=== PATIENT | female | born 1960 | race Caucasian/White ===

== ENCOUNTER 2019-05-22 17:04 | Emergency (ER) | payer BC ==
[2019-05-22] MEDS ORDERED: ONDANSETRON 4 MG/2 ML VIAL ONE (19:30)
[2019-05-22] MEDS ORDERED: NA CHLORIDE 0.9% 1,000 ML ONE (19:30)
[2019-05-22 19:35] LABS: Absolute Lymphocytes (CBC) 0.4 K/uL (0.7-4.9); Basophils % 0.7 % (0-1.3); Hematocrit 42.8 % (36.0-45.0); Lymphocytes % 5.8 % (15.3-44.8); MPV 8.4 fL (7.6-11.3); RBC Red Blood Cell Count 4.86 M/uL (3.86-4.86)
[2019-05-22 19:59] LABS: Albumin 4.1 g/dL (3.4-5.0); Bilirubin Direct 0.1 mg/dL (0-0.2); Bilirubin Total 0.6 mg/dL (0.2-1.0); Potassium 3.4 mmol/L (3.5-5.1); Protein, Total 8.4 g/dL (6.4-8.2)
[2019-05-22 20:01] LABS: Urine White Blood Cell Casts OK
[2019-05-22 20:02] LABS: Blood Morphology Comment NOT SEEN (NOT SEEN); Platelet Estimate ADEQ
--- NOTE | 2019-05-22 20:56 | EDPHYS ---
Physician Documentation [facility] Name: Opal Willingham Age: 59 yrs Sex: Female : 1960 Arrival Date: 05/22/2019 Time: 17:05 Bed 20 Private MD: Huyen Nicholson R ED Physician Jj Weir HPI: 05/22 21:34 This 59 yrs old Female presents to ER via Ambulatory with complaints of Flu tw4 Symptoms. 21:34 The patient presents to the emergency department with nausea, vomiting, 10 times since tw4 the onset of symptoms, described as diarrhea. Onset: The symptoms/episode began/occurred today. Possible causes: unknown, flare up of bowel problem, Crohn's disease. The symptoms are aggravated by nothing. The symptoms are alleviated by nothing. The patient has not experienced similar symptoms in the past. Historical: - Allergies: 17:25 No Known Allergies; ca1 - Home Meds: 17:25 Nexium Oral [Active]; aspirin 81 mg Oral chew 1 tab once daily [Active]; ca1 - PMHx: 17:25 Clotting Disorder; ca1 - PSHx: 17:25 Hysterectomy; ca1 - Immunization history:: Adult Immunizations up to date, Flu vaccine is not up to date. - Coronavirus screen:: The patient has NOT traveled to [place] in the past 14 days. The patient has NOT had contact with known/suspected case of Coronavirus?. - Social history:: Smoking status: Patient denies any tobacco usage or history of. - Ebola Screening: : Patient negative for fever greater than or equal to 101.5 degrees Fahrenheit, and additional compatible Ebola Virus Disease symptoms Patient denies exposure to infectious person Patient denies travel to an Ebola-affected area in the 21 days before illness onset No symptoms or risks identified at this time. ROS: 21:34 Constitutional: Negative for fever, chills, and weight loss, Eyes: Negative for injury, tw4 pain, redness, and discharge, Cardiovascular: Negative for chest pain, palpitations, and edema, Respiratory: Negative for shortness of breath, cough, wheezing, and pleuritic chest pain, Back: Negative for injury and pain, MS/Extremity: Negative for injury and deformity, Skin: Negative for injury, rash, and discoloration, Neuro: Negative for headache, weakness, numbness, tingling, and seizure. 21:34 Abdomen/GI: Positive for abdominal pain, nausea and vomiting, nausea, vomiting, and diarrhea, nausea, vomiting, diarrhea, Negative for constipation, abdominal cramps, abdominal distension, anorexia, dysphagia, black/tarry stool, rectal pain, bowel incontinence. Exam: 21:34 Constitutional: This is a well developed, well nourished patient who is awake, alert, tw4 and in no acute distress. Head/Face: Normocephalic, atraumatic. Chest/axilla: Normal chest wall appearance and motion. Nontender with no deformity. No lesions are appreciated. Cardiovascular: Regular rate and rhythm with a normal S1 and S2. No gallops, murmurs, or rubs. Normal PMI, no JVD. No pulse deficits. Respiratory: Lungs have equal breath sounds bilaterally, clear to auscultation and percussion. No rales, rhonchi or wheezes noted. No increased work of breathing, no retractions or nasal flaring. 21:34 Abdomen/GI: Soft, non-tender, with normal bowel sounds. No distension or tympany. No guarding or rebound. No evidence of tenderness throughout. Back: No spinal tenderness. No costovertebral tenderness. Full range of motion. MS/ Extremity: Pulses equal, no cyanosis. Neurovascular intact. Full, normal range of motion. Neuro: Awake and alert, GCS 15, oriented to person, place, time, and situation. Cranial nerves II-XII grossly intact. Motor strength 5/5 in all extremities. Sensory grossly intact. Cerebellar exam normal. Normal gait. Vital Signs: 17:25 BP 139 / 93; Pulse 96; Resp 17 S; Temp 98.4(O); Pulse Ox 100% on R/A; Weight 77.11 kg ca1 (R); Height 5 ft. 7 in. (170.18 cm) (R); 18:17 BP 158 / 91; Pulse 87; Resp 17; Pulse Ox 100% on R/A; Pain 4/10; rb1 19:44 BP 137 / 90; Pulse 81; Resp 18; Pulse Ox 96% on R/A; wh 21:00 BP 139 / 88; Pulse 79; Resp 18; Pulse Ox 99% on R/A; wh 17:25 Body Mass Index 26.63 (77.11 kg, 170.18 cm) ca1 18:17 Pt. just walked back from the restroom rb1 MDM: 17:45 Patient medically screened. tw4 21:36 Differential diagnosis: Nonspecific abd pain, gastritis. Data reviewed: vital signs, tw4 nurses notes. Data interpreted: Pulse oximetry: Interpretation: normal. Counseling: I had a detailed discussion with the patient and/or guardian regarding: the historical points, exam findings, and any diagnostic results supporting the discharge/admit diagnosis. Special discussion: I discussed with the patient/guardian in detail that at this point there is no indication for admission to the hospital. It is understood, however, that if the symptoms persist or worsen the patient needs to return immediately for re-evaluation. 05/22 17:11 Order name: Flu snw 05/22 17:11 Order name: Strep snw 05/22 18:36 Order name: Basic Metabolic Panel [facility] 05/22 18:36 Order name: CBC with Diff [facility] 05/22 18:36 Order name: Creatinine for Radiology [facility] 05/22 18:36 Order name: Hepatic Function [facility] 05/22 18:36 Order name: Lipase tw 05/22 18:36 Order name: IV Saline Lock; Complete Time: 19:31 [facility] 05/22 18:36 Order name: Labs collected and sent; Complete Time: 19:31 [facility] 05/22 19:41 Order name: Throat Culture [facility] 05/22 20:03 Order name: CBC Smear Scan [facility] Administered Medications: 19:28 Drug: NS 0.9% 1000 ml Route: IV; Rate: 1 bolus; Site: right antecubital; 21:19 Follow up: Response: No adverse reaction; IV Status: Completed infusion 19:30 Drug: Zofran 4 mg Route: IVP; Site: right antecubital; 21:19 Follow up: Response: No adverse reaction; Nausea is decreased 21:10 Drug: Potassium Chloride 20 mEq Route: PO; 21:19 Follow up: Response: No adverse reaction Disposition: 05/22/19 20:55 Discharged to Home. Impression: Influenza due to identified novel influenza A virus, Other viral enteritis. - Condition is Stable. - Discharge Instructions: Influenza, Adult, Viral Gastroenteritis, Adult, [id number]. - Prescriptions for Bentyl 20 mg Oral Tablet - take 1 tablet by ORAL route every 6 hours As needed; 20 tablet. Zofran 4 mg Oral Tablet - take 1 tablet by ORAL route every 12 hours As needed; 6 tablet. Tamiflu 75 mg Oral Capsule - take 1 tablet by ORAL route every 12 hours for 5 days; 10 tablet. - Medication Reconciliation Form, Thank You Letter, Antibiotic Education, Prescription Opioid Use form. - Follow up: Huyen Nicholson MD; When: Upon discharge from the Emergency Department; Reason: If symptoms return, Recheck today's complaints, Continuance of care, Re-evaluation by your physician. - Problem is new. - Symptoms have improved. Signatures: Dispatcher [employer] EDMS Ludy Mclaughlin Terrence, MD MD tw4 Blessing Bowen RN RN ca1 Corrections: (The following items were deleted from the chart) 21:21 20:55 05/22/2019 20:55 Discharged to Home. Impression: Influenza due to identified novel influenza A virus; Other viral enteritis. Condition is Stable. Forms are Medication Reconciliation Form, Thank You Letter, Antibiotic Education, Prescription Opioid Use. Follow up: Huyen Nicholson; When: Upon discharge from the Emergency Department; Reason: If symptoms return, Recheck today's complaints, Continuance of care, Re-evaluation by your physician. Problem is new. Symptoms have improved. tw4
--- NOTE | 2019-05-22 20:56 | ER ---
Nurse's Notes [facility] Name: Opal Willingham Age: 59 yrs Sex: Female : 1960 Arrival Date: 05/22/2019 Time: 17:05 Bed 20 Private MD: Huyen Nicholson R Diagnosis: Influenza due to identified novel influenza A virus;Other viral enteritis Presentation: 05/22 17:21 Presenting complaint: Patient states: Yesterday, sudden onset of cough. This morning ca1 fever at 101F. They swabbed for FLU was negative. Vomiting and diarrhea at 1100, and stopped at 1500. I feel very dehydrated, tingling on my hands and spasms on my legs. Transition of care: patient was not received from another setting of care. Onset of symptoms was May 22, 2019. Risk Assessment: Do you want to hurt yourself or someone else? Patient reports no desire to harm self or others. Initial Sepsis Screen: Does the patient meet any 2 criteria? No. Patient's initial sepsis screen is negative. Does the patient have a suspected source of infection? No. Patient's initial sepsis screen is negative. Care prior to arrival: None. 17:21 Method Of Arrival: Ambulatory ca1 17:21 Acuity: EFREM 3 ca1 Historical: - Allergies: 17:25 No Known Allergies; ca1 - Home Meds: 17:25 Nexium Oral [Active]; aspirin 81 mg Oral chew 1 tab once daily [Active]; ca1 - PMHx: 17:25 Clotting Disorder; ca1 - PSHx: 17:25 Hysterectomy; ca1 - Immunization history:: Adult Immunizations up to date, Flu vaccine is not up to date. - Coronavirus screen:: The patient has NOT traveled to [place] in the past 14 days. The patient has NOT had contact with known/suspected case of Coronavirus?. - Social history:: Smoking status: Patient denies any tobacco usage or history of. - Ebola Screening: : Patient negative for fever greater than or equal to 101.5 degrees Fahrenheit, and additional compatible Ebola Virus Disease symptoms Patient denies exposure to infectious person Patient denies travel to an Ebola-affected area in the 21 days before illness onset No symptoms or risks identified at this time. Screenin:35 Abuse screen: Denies threats or abuse. Nutritional screening: No deficits noted. rb1 Tuberculosis screening: No symptoms or risk factors identified. Fall Risk None identified. Assessment: 17:35 General: Appears uncomfortable, Behavior is calm, cooperative, Reports fever for Max rb1 Temp 101. Pain: Complains of pain in ribs Pain currently is 4 out of 10 on a pain scale. Aggravated by coughing. Neuro: Level of Consciousness is awake, alert, obeys commands, Oriented to person, place, time, situation. Cardiovascular: Capillary refill < 3 seconds is brisk in bilateral fingers. Respiratory: Reports cough that is pain with cough Airway is patent Respiratory effort is even, unlabored, Respiratory pattern is regular, symmetrical. GI: Reports diarrhea, nausea, vomiting. : No signs and/or symptoms were reported regarding the genitourinary system. Derm: Skin is pink, warm \T\ dry. 18:33 Reassessment: Patient appears in no apparent distress at this time. No changes from [facility] previously documented assessment. 19:15 Reassessment: Patient appears in no apparent distress at this time. Patient and/or family updated on plan of care and expected duration. Pain level reassessed. Patient is alert, oriented x 3, equal unlabored respirations, skin warm/dry/pink. 20:30 Reassessment: Patient appears in no apparent distress at this time. No changes from previously documented assessment. Patient and/or family updated on plan of care and expected duration. Pain level reassessed. Patient is alert, oriented x 3, equal unlabored respirations, skin warm/dry/pink. MD at bedside explaining POC. 21:16 Reassessment: Patient appears in no apparent distress at this time. No changes from previously documented assessment. Patient and/or family updated on plan of care and expected duration. Pain level reassessed. Patient is alert, oriented x 3, equal unlabored respirations, skin warm/dry/pink. Patient states feeling better. Patient states symptoms have improved. Vital Signs: 17:25 BP 139 / 93; Pulse 96; Resp 17 S; Temp 98.4(O); Pulse Ox 100% on R/A; Weight 77.11 kg ca1 (R); Height 5 ft. 7 in. (170.18 cm) (R); 18:17 BP 158 / 91; Pulse 87; Resp 17; Pulse Ox 100% on R/A; Pain 4/10; rb1 19:44 BP 137 / 90; Pulse 81; Resp 18; Pulse Ox 96% on R/A; wh 21:00 BP 139 / 88; Pulse 79; Resp 18; Pulse Ox 99% on R/A; wh 17:25 Body Mass Index 26.63 (77.11 kg, 170.18 cm) ca1 18:17 Pt. just walked back from the restroom rb1 ED Course: 17:05 Patient arrived in ED. rg4 17:05 Huyen Nicholson MD is Private Physician. rg4 17:23 Triage completed. ca1 17:25 Arm band placed on right wrist. ca1 17:31 Jj Weir MD is Attending Physician. tw4 17:32 Bouchra Rogers, JODIE is Primary Nurse. rb1 17:35 Patient has correct armband on for positive identification. Bed in low position. Call rb1 light in reach. Side rails up X 1. Pulse ox on. NIBP on. 19:15 Inserted saline lock: 22 gauge in right antecubital area, using aseptic technique. Blood collected. 20:55 Huyen Nicholson MD is Referral Physician. tw4 21:20 No provider procedures requiring assistance completed. Patient did not have IV access during this emergency room visit. Administered Medications: 19:28 Drug: NS 0.9% 1000 ml Route: IV; Rate: 1 bolus; Site: right antecubital; 21:19 Follow up: Response: No adverse reaction; IV Status: Completed infusion 19:30 Drug: Zofran 4 mg Route: IVP; Site: right antecubital; 21:19 Follow up: Response: No adverse reaction; Nausea is decreased 21:10 Drug: Potassium Chloride 20 mEq Route: PO; 21:19 Follow up: Response: No adverse reaction Outcome: 20:55 Discharge ordered by . tw4 21:20 Discharged to home via wheelchair, with family. 21:20 Condition: stable 21:20 Discharge instructions given to patient, family, Instructed on discharge instructions, follow up and referral plans. medication usage, POC Demonstrated understanding of instructions, follow-up care, medications, POC Prescriptions given X 3. 21:21 Patient left the ED. Signatures: Bouchra Rogers, JODIE RN rb1 Carline Carbajal 4 Habalo, Jj Holder MD MD tw4 Blessing Bowen RN RN ca1 Corrections: (The following items were deleted from the chart) 17:26 17:21 Presenting complaint: Patient states: Yesterday, sudden onset of cough. This ca1 morning fever at 101F. They swabbed for a FLU was negative. Vomiting and diarrhea at 1100, and stopped at 1500. I feel very dehydrated, tingling on my hands and spasms on my legs. ca1 18:17 17:35 Respiratory: Airway is patent Respiratory effort is even, unlabored, Respiratory rb1 pattern is regular, symmetrical, rb1
[2019-05-22] MEDS ORDERED: POTASSIUM CL SA 10 MEQ TAB PO ONE (21:11)
[2019-05-22 21:48] VITALS: TEMP 98.4
[2019-05-22 21:55] VITALS: BP 139/88; O2SAT 99
== END 2019-05-22 21:21 | disposition home or self-care (01) ==
LOC: ER 17:04
DX: J10.1 Influenza due to other identified influenza virus with other respiratory manifestations (principal); A08.39 Other viral enteritis; D75.89 Other specified diseases of blood and blood-forming organs; Z79.82 Long term (current) use of aspirin
CPT/HCPCS: 96361; 87070; 85025; 80048; 36415; 80076; 87081; 83690; 87804 ×2; 96374; 99284; J7030; J2405

== ENCOUNTER 2021-10-05 09:36 | Emergency (ER) | payer BC ==
[2021-10-05] MEDS ORDERED: ONDANSETRON 4 MG/2 ML VIAL ONE ×2 (10:44→12:56)
[2021-10-05] MEDS ORDERED: Ringers Lactate 1,000 ML IV ONE (10:44)
[2021-10-05 10:51] LABS: Absolute Lymphocytes (CBC) 0.2 K/uL (0.7-4.9); Hematocrit 39.6 % (36.0-45.0); Lymphocytes % 1.8 % (15.3-44.8); MCV 85.3 fL (80-100); RBC Red Blood Cell Count 4.64 M/uL (3.86-4.86)
[2021-10-05 10:52] LABS: Protime INR 1.12
[2021-10-05 10:57] LABS: Urine Blood Negative (Negative); Urine Glucose Negative (Negative); Urine Protein Negative (Negative); Urine Specific Gravity 1.025 (1.005-1.030); Urine pH 5.5 (5.0-7.0)
--- NOTE | 2021-10-05 11:07 | RAD REPORT ---
EXAM DESCRIPTION: [facility] Single View10/05/2021 10:09 am CLINICAL HISTORY: sob COMPARISON: none FINDINGS: The lungs appear clear of acute infiltrate. The heart is normal size IMPRESSION: No acute abnormalities displayed
[2021-10-05 11:09] LABS: Albumin 3.9 g/dL (3.4-5.0); Bilirubin Direct 0.1 mg/dL (0-0.2); Bilirubin Total 0.6 mg/dL (0.2-1.0); Magnesium 1.9 mg/dL (1.8-2.4); Potassium 3.6 mmol/L (3.5-5.1); Protein, Total 7.8 g/dL (6.4-8.2); Troponin High Sensitivity 4.5 pg/mL (<58.9)
[2021-10-05 11:34] LABS: Blood Morphology Comment NOT SEEN (NOT SEEN); Platelet Estimate ADEQ; White Blood Cell Scan OK (OK)
[2021-10-05] MEDS ORDERED: MORPHINE 4 MG/ML SYR ONE (11:46)
--- NOTE | 2021-10-05 13:00 | RAD REPORT ---
EXAM DESCRIPTION: CT - Abdomen Pelvis W Contrast - 10/05/2021 12:42 pm CLINICAL HISTORY: lower abdominal pain, positive adenoma COVID test, chest pain, abdominal pain COMPARISON: Chest For Pe Angio dated 10/05/2021 TECHNIQUE: Biphasic, helical CT imaging of the abdomen and pelvis was performed following 100 ml non -ionic IV contrast. No oral contrast administered. All CT scans are performed using dose optimization technique as appropriate and may include automated exposure control or mA/KV adjustment according to patient size. FINDINGS: No suspicious findings in the lung bases. The liver, spleen, and pancreas show no suspicious findings. Gallbladder and biliary tree are also wi thout suspicious finding. Symmetric renal function is seen with no hydronephrosis or suspicious renal mass. No pyelonephritis o r acute parenchymal process. No bladder abnormalities. No adrenal abnormalities. Uterus is absent. Ov belkis are absent or atrophic. No dilated bowel loops or bowel wall thickening. No appendicitis. No free air, free fluid or inflamma tory stranding. No mass or bulky lymphadenopathy. Fat filled right inguinal hernia is present. No co ngestion or edema of the fat. Patient has a very minimal fat only umbilical hernia. No suspicious bony findings. IMPRESSION: Contrast enhanced CT abdomen and pelvis showing no acute or emergent finding. Nonacute findings detailed in the body of the report.
--- NOTE | 2021-10-05 13:01 | RAD REPORT ---
EXAM DESCRIPTION: CT - Chest For Pe Angio - 10/05/2021 12:41 pm CLINICAL HISTORY: chest pain, elevated d-dimer COMPARISON: Chest Single View dated 10/05/2021 TECHNIQUE: Dynamically enhanced 3 mm thick images of the chest were obtained during administration o f approximately 150mL Isovue 370 IV contrast. Coronal and oblique MIP reconstruction images were gene rated and reviewed. Exam utilizes a protocol to evaluate the pulmonary arterial tree. All CT scans are performed using dose optimization technique as appropriate and may include automated exposure control or mA/KV adjustment according to patient size. FINDINGS: No pulmonary emboli are identified. The aorta as imaged shows no acute or suspicious finding. No pericardial thickening or effusion. No infiltrate or mass in the lung parenchyma. No pleural effusion or pleural thickening. No mediastinal or hilar suspicious masses. No chest wall masses or abnormal axillary lymphadenopathy. IMPRESSION: No pulmonary emboli identified. No other significant or suspicious findings.
[2021-10-05] MEDS ORDERED: LORazepam 2 MG/ML VIAL ONE (14:30)
[2021-10-05] MEDS ORDERED: dexAMETHasone 10 MG/ML VIAL ONE (14:31)
[2021-10-05] MEDS ORDERED: BEBTELOVIMAB 175 MG/2 ML VIAL IV ONE (14:39)
--- NOTE | 2021-10-05 16:00 | ER ---
Nurse's Notes [facility] Name: Opal Willingham Age: 61 yrs Sex: Female : 1960 Arrival Date: 10/05/2021 Time: 09:40 Bed 13 Private MD: Diagnosis: Coronavirus infection, unspecified Presentation: 10/05 09:42 Chief complaint: Patient states: pt reports doing a home covid test and it was giron positive. pt having sob, chest pressure, chills , n/v this morning. Coronavirus screen: Vaccine status: Patient reports being unvaccinated. Ebola Screen: Patient denies travel to an Ebola-affected area in the 21 days before illness onset. Initial Sepsis Screen: Does the patient meet any 2 criteria? HR > 90 bpm. Does the patient have a suspected source of infection? No. Patient's initial sepsis screen is negative. Risk Assessment: Do you want to hurt yourself or someone else? Patient reports no desire to harm self or others. Onset of symptoms was October 05, 2021. 09:42 Method Of Arrival: Ambulatory giron 09:42 Acuity: EFREM 3 giron Triage Assessment: 09:46 General: Appears distressed, Behavior is anxious. Pain: Complains of pain in chest and giron abdomen. Cardiovascular: Chest pain began suddenly. GI: Reports nausea, vomiting. Historical: - Allergies: 09:44 No Known Allergies; giron - Home Meds: 09:44 aspirin 81 mg Oral chew 1 tab once daily [Active]; Nexium Oral [Active]; Crestor 10 mg giron oral tab 1 tab once daily [Active]; Ativan 0.5 mg Oral tab 1 tab as needed [Active]; - PMHx: 09:44 clotting disorder; Crohn's disease; giron - Immunization history:: Adult Immunizations up to date. - Social history:: Smoking status: Patient denies any tobacco usage or history of. Screenin:30 Abuse screen: Denies threats or abuse. Nutritional screening: No deficits noted. 6 Tuberculosis screening: No symptoms or risk factors identified. Fall Risk Assessment: 10:30 General: Appears uncomfortable, Behavior is cooperative. [facility] 10:30 Pain: Complains of pain in abdomen Pain currently is 5 out of 10 on a pain scale. [facility] Quality of pain is described as crampy, Pain began suddenly, 3 hours ago. Is continuous. GI: Abdomen is non-distended, Bowel sounds present X 4 quads. Abd is soft and non tender X 4 quads. Reports lower abdominal pain, upper abdominal pain, diarrhea, nausea, vomiting. 11:30 Reassessment: No changes from previously documented assessment. Patient and/or family jh6 updated on plan of care and expected duration. Pain level reassessed. Patient is alert, oriented x 3, equal unlabored respirations, skin warm/dry/pink. 12:45 Reassessment: Patient and/or family updated on plan of care and expected duration. Pain jh6 level reassessed. Patient is alert, oriented x 3, equal unlabored respirations, skin warm/dry/pink. states that she not as nauseated but is in need of more nausea meds. states that she feels like she has a fever. 14:09 Reassessment: Patient and/or family updated on plan of care and expected duration. Pain jh6 level reassessed. pt slightly anxious states that her head feels hot and that she is achy all over. Vital Signs: 09:42 BP 147 / ???; Pulse 114; Resp 17; Temp 98.9(O); Pulse Ox 98% ; Weight 81.65 kg; Height grion 5 ft. 7 in. (170.18 cm); 11:03 BP 138 / 75; Pulse 100; Resp 17; Pulse Ox 93% ; Pain 5/10; jh6 12:45 BP 129 / 76; Pulse 92; Resp 16; Pulse Ox 100% ; Pain 4/10; jh6 14:09 BP 139 / 78; Pulse 81; Resp 19; Temp 98.6; Pulse Ox 100% on R/A; Pain 5/10; jh6 16:00 BP 127 / 74; Pulse 83; Resp 16; Temp 98.6(O); Pulse Ox 100% ; Pain 0/10; jh6 09:42 Body Mass Index 28.19 (81.65 kg, 170.18 cm) giron ED Course: 09:40 Patient arrived in ED. jj6 09:44 Triage completed. giron 09:46 Arm band placed on. giron 09:47 Miah Samaniego PA is PHCP. [facility] 09:47 Jose Manzanares MD is Attending Physician. [facility] 09:53 Hastedt, Soco, RN is Primary Nurse. jh6 10:11 XRAY Chest (1 view) In Process Unspecified. EDMS 10:30 Placed in gown. Bed in low position. Call light in reach. Side rails up X 1. jh6 10:43 Initial lab(s) drawn, by me, sent to lab. COVID swab sent to lab. Flu and/or RSV swab em1 sent to lab. Inserted saline lock: 20 gauge in right antecubital area, using aseptic technique. Blood collected. 10:45 EKG done. jh6 12:[address] via wheelchair. jh6 12:43 CT Chest For PE Angio In Process Unspecified. EDMS 12:43 CT Abd/Pelvis - IV Contrast Only In Process Unspecified. EDMS 16:21 IV discontinued, intact, bleeding controlled, No redness/swelling at site. Pressure jh6 dressing applied. 16:22 No provider procedures requiring assistance completed. jh6 Administered Medications: 10:48 Drug: Lactated Ringers Solution 1000 ml Route: IV; Rate: 1000 bolus; Site: right [facility] antecubital; 10:48 Drug: Zofran (Ondansetron) 4 mg Route: IVP; Site: right antecubital; jh6 11:44 Drug: morphine 4 mg Route: IVP; Infused Over: 4 mins; Site: right antecubital; jh6 14:29 Drug: Ativan (LORazepam) 0.5 mg Route: IVP; Site: right antecubital; 6 14:51 Follow up: Response: Anxiety decreased jh6 14:30 Drug: Decadron - Dexamethasone 10 mg Route: IVP; Site: right antecubital; jh6 14:51 Follow up: Response: No adverse reaction jh6 14:46 Drug: bebtelovimab 1 application Route: IVP; Site: right antecubital; 6 16:23 Follow up: Response: No adverse reaction [facility] Outcome: 15:59 Discharge ordered by . miguel 16:22 Discharged to home ambulatory. jh6 16:22 Condition: good 16:22 Discharge instructions given to patient, Instructed on discharge instructions, follow up and referral plans. Demonstrated understanding of instructions, follow-up care. 16:24 Patient left the ED. [facility] Signatures: Dispatcher [employer] EDMS MicMiah hale PA PA jmm Martinez, Eric em1 Soco Gregg jj6 Soco Hart, RN RN jh6 Caren Flores RN RN giron
--- NOTE | 2021-10-05 16:00 | EDPHYS ---
Physician Documentation [facility] Name: Opal Willingham Age: 61 yrs Sex: Female : 1960 Arrival Date: 10/05/2021 Time: 09:40 Bed 13 Private MD: ED Physician Jose Manzanares HPI: 10/05 09:48 This 61 yrs old Female presents to ER via Ambulatory with complaints of Patient states jmm COVID+ with H/O Crohn's Disease, Nausea/Vomiting/Diarrhea, Chest Congestion, Chest Pressure. 09:48 The patient or guardian reports cough. Onset: The symptoms/episode began/occurred jm gradually, 1 day(s) ago. Modifying factors: The symptoms are alleviated by nothing. the symptoms are aggravated by nothing. Associated signs and symptoms: Pertinent positives: chest pain, diarrhea, fever, sore throat. It is unknown whether or not the patient has had similar symptoms in the past. This is a 61-year-old female with chronic medical conditions the presents emerged part with complaints of cough, congestion, sore throat, diarrhea, vomiting, chest discomfort. Patient states that her was recently diagnosed with coronavirus.. Historical: - Allergies: 09:44 No Known Allergies; giron - Home Meds: 09:44 aspirin 81 mg Oral chew 1 tab once daily [Active]; Nexium Oral [Active]; Crestor 10 mg giron oral tab 1 tab once daily [Active]; Ativan 0.5 mg Oral tab 1 tab as needed [Active]; - PMHx: 09:44 clotting disorder; Crohn's disease; giron - Immunization history:: Adult Immunizations up to date. - Social history:: Smoking status: Patient denies any tobacco usage or history of. ROS: 09:48 Constitutional: Positive for body aches, chills. jmm 09:48 Respiratory: Positive for cough. 09:48 Abdomen/GI: Positive for abdominal pain, nausea and vomiting, diarrhea. 09:48 All other systems are negative. Exam: 09:48 Head/Face: atraumatic. Eyes: EOMI, no conjunctival erythema appreciated ENT: Moist jmm Mucus Membranes Neck: Trachea midline, Supple Chest/axilla: Normal chest wall appearance and motion. 09:48 Respiratory: Normal respirations, no respiratory distress appreciated Back: Normal ROM Skin: General appearance color normal MS/ Extremity: Moves all extremities, no obvious deformities appreciated, no edema noted to the lower extremities Neuro: Awake and alert Psych: Behavior is normal, Mood is normal, Patient is cooperative and pleasant 09:48 Constitutional: The patient appears alert, awake, anxious. 09:48 Cardiovascular: Rate: normal, Rhythm: regular. 09:48 Respiratory: the patient does not display signs of respiratory distress, Respirations: normal, Breath sounds: are clear throughout. 09:48 Abdomen/GI: Inspection: abdomen appears normal, Bowel sounds: normal, Palpation: soft, mild abdominal tenderness, in all quadrants. 10:48 ECG was reviewed by the Attending Physician. [facility] Vital Signs: 09:42 BP 147 / ???; Pulse 114; Resp 17; Temp 98.9(O); Pulse Ox 98% ; Weight 81.65 kg; Height giron 5 ft. 7 in. (170.18 cm); 11:03 BP 138 / 75; Pulse 100; Resp 17; Pulse Ox 93% ; Pain 5/10; jh6 12:45 BP 129 / 76; Pulse 92; Resp 16; Pulse Ox 100% ; Pain 4/10; jh6 14:09 BP 139 / 78; Pulse 81; Resp 19; Temp 98.6; Pulse Ox 100% on R/A; Pain 5/10; jh6 16:00 BP 127 / 74; Pulse 83; Resp 16; Temp 98.6(O); Pulse Ox 100% ; Pain 0/10; jh6 09:42 Body Mass Index 28.19 (81.65 kg, 170.18 cm) giron MDM: 09:54 Patient medically screened. [facility] 15:56 Data reviewed: vital signs, nurses notes. Counseling: I had a detailed discussion with [facility] the patient and/or guardian regarding: the historical points, exam findings, and any diagnostic results supporting the discharge/admit diagnosis, lab results, radiology results, the need for outpatient follow up, to return to the emergency department if symptoms worsen or persist or if there are any questions or concerns that arise at home. 15:56 ED course: Patient states feeling much better after IV fluids, anxiolytic medication, [facility] antiemetics. Patient requested monoclonal antibodies. Given IV. Patient was observed without any adverse reactions. Patient otherwise given strict return precautions. Patient understood agrees plan of care.. 10/05 09:48 Order name: Basic Metabolic Panel; Complete Time: 11:10 [facility] 10/05 09:48 Order name: CBC with Diff; Complete Time: 11:38 [facility] 10/05 09:48 Order name: LFT's; Complete Time: 11:10 [facility] 10/05 09:48 Order name: Magnesium; Complete Time: 11:10 [facility] 10/05 09:48 Order name: NT PRO-BNP; Complete Time: 11:10 [facility] 10/05 09:48 Order name: PT-INR; Complete Time: 11:10 [facility] 10/05 09:48 Order name: Troponin HS; Complete Time: 11:10 [facility] 10/05 09:48 Order name: XRAY Chest (1 view); Complete Time: 11:10 [facility] 10/05 10:07 Order name: SARS-COV-2 RT PCR (Document "Date of Onset" if Symptomatic); Complete Time: [facility] 12:06 10/05 10:07 Order name: Influenza Screen (a \\T\\ B); Complete Time: 11:38 [facility] 10/05 10:57 Order name: Urine Dipstick-Ancillary; Complete Time: 11:10 [facility] 10/05 11:35 Order name: CBC Smear Scan; Complete Time: 11:38 [facility] 10/05 11:38 Order name: D-Dimer; Complete Time: 12:06 [facility] 10/05 14:41 Order name: Glucose, Ancillary Testing; Complete Time: 14:51 [facility] 10/05 09:48 Order name: EKG; Complete Time: 09:48 [facility] 10/05 09:48 Order name: Cardiac monitoring; Complete Time: 10:48 [facility] 10/05 09:48 Order name: EKG - Nurse/Tech; Complete Time: 10:48 [facility] 10/05 09:48 Order name: IV Saline Lock; Complete Time: 10:43 [facility] 10/05 09:48 Order name: Labs collected and sent; Complete Time: 10:43 [facility] 10/05 09:48 Order name: O2 Per Protocol; Complete Time: 10:48 [facility] 10/05 09:48 Order name: O2 Sat Monitoring; Complete Time: 10:48 [facility] 10/05 12:06 Order name: CT Chest For PE Angio; Complete Time: 13:08 [facility] 10/05 12:06 Order name: CT Abd/Pelvis - IV Contrast Only; Complete Time: 13:01 [facility] 10/05 14:10 Order name: Vital Signs [facility] EC:48 Rate is 97 beats/min. QRS [place] is Normal. MO interval is normal. QRS interval is [facility] normal. QT interval is normal. No Q waves. T waves are Normal. No ST changes noted. Reviewed by me. Administered Medications: 10:48 Drug: Lactated Ringers Solution 1000 ml Route: IV; Rate: 1000 bolus; Site: right [facility] antecubital; 10:48 Drug: Zofran (Ondansetron) 4 mg Route: IVP; Site: right antecubital; [facility] 11:44 Drug: morphine 4 mg Route: IVP; Infused Over: 4 mins; Site: right antecubital; [facility] 14:29 Drug: Ativan (LORazepam) 0.5 mg Route: IVP; Site: right antecubital; [facility] 14:51 Follow up: Response: Anxiety decreased [facility] 14:30 Drug: Decadron - Dexamethasone 10 mg Route: IVP; Site: right antecubital; [facility] 14:51 Follow up: Response: No adverse reaction [facility] 14:46 Drug: bebtelovimab 1 application Route: IVP; Site: right antecubital; [facility] 16:23 Follow up: Response: No adverse reaction [facility] Disposition: 16:35 Co-signature as Attending Physician, Jose Manzanares MD I agree with the assessment and kdr plan of care. Disposition Summary: 10/05/21 15:59 Discharge Ordered Location: Home [facility] Condition: Stable [facility] Diagnosis - Coronavirus infection, unspecified [facility] Followup: [facility] - With: Private Physician - When: 2 - 3 days - Reason: Recheck today's complaints, Continuance of care, Re-evaluation by your physician Discharge Instructions: - Discharge Summary Sheet [facility] - COVID-19 [facility] Forms: - Medication Reconciliation Form [facility] - Thank You Letter [facility] - Antibiotic Education [facility] - Prescription Opioid Use [facility] Signatures: Dispatcher [employer] EDJose Winters MD MD kdr Mickail, Joel, PA PA [facility] Soco Hart RN RN 6 Caren Flores RN RN
[2021-10-05 16:32] VITALS: O2SAT 100
[2021-10-05 16:34] VITALS: TEMP 98.6
[2021-10-05 16:36] VITALS: BP 127/74
--- NOTE | 2021-10-06 07:58 | EKG ---
Test Date: 2021-10-05 Test Time: 10:48:20 Rib Knitter: MADI MEASUREMENT RESULTS: Intervals: Rate: 97 HI: 142 QRSD: 72 QT: 352 QTc: 447 [place]: P: 39 HI: 142 QRS: -2 T: 15 INTERPRETIVE STATEMENTS: Normal sinus rhythm Normal ECG No previous ECG available for comparison Electronically Signed On 10-06-21 07:55:31 CDT by Lance Berrios
== END 2021-10-05 16:24 | disposition home or self-care (01) ==
LOC: ER 09:36
DX: R06.02 Shortness of breath (principal); R07.89 Other chest pain; U07.1 COVID-19; R11.2 Nausea with vomiting, unspecified
CPT/HCPCS: 36415; 71045; 71275; 74177; 80048; 80076; 81003; 82947; 83735; 83880; 84484; 85025; 85379; 85610; 87804; 93005; 99284; J1100; J2405; J7120; Q9967; U0003